=== PATIENT | female | born 1950 | race Hispanic/Latino ===

== ENCOUNTER 2017-06-01 06:16 | Day surgery (SDC) | payer MEDICARE, BC ==
[2016-06-11 12:36] VITALS: BMI 47.2
[2017-06-01 06:54] LABS: INR 0.99 (0.93-1.08); PARTIAL THROMBOPLASTIN TIME 27.5 Seconds (23.7-30.8)
[2017-06-01] MEDS ORDERED: Bupivacaine 0.5% Inj(30mL) ONE (07:17)
[2017-06-01] MEDS ORDERED: Lidocaine 1% Inj (20ml) ONE (07:17)
[2017-06-01] MEDS ORDERED: HYDROmorphone 0.5 mg/0.5 ml ISec IVP PRN (07:36)
[2017-06-01] MEDS ORDERED: Midazolam 2 MG/2 ML VIAL ONE (07:49)
[2017-06-01] MEDS ORDERED: Propofol 10 mg/ml Inj (20 ML) ONE (07:49)
--- NOTE | 2017-06-01 08:53 | PCM.SURG1 ---
Surgeon's Initial Post Op Note - Surgeon's Notes Surgeon: Dr. Smalls Senior Marketing Manager: Dr. Diallo PGY3 Type of Anesthesia: IV Sedation, Local Pre-Operative Diagnosis: right shoulder mass Operative Findings: see operative report Post-Operative Diagnosis: same Operation Performed: excision of 4.2cm by 2.5cm right shoulder mass w/ bilateral flap advancement closure Specimen/Specimens Removed: shoulder mass Estimated Blood Loss: EBL {In ML}: 10 Blood Products Given: N/A Drains Used: No Drains Post-Op Condition: Good Date of Surgery/Procedure: 06/01/17 Time of Surgery/Procedure: 08:52
[2017-06-01 09:40] VITALS: PULSE 69; RESP 18; TEMP 98; O2SAT 96
[2017-06-01 10:00] VITALS: BP 135/63
--- NOTE | 2017-06-01 21:11 | OP ---
PROCEDURE DATE: 05/31/2017 PREOPERATIVE DIAGNOSIS: Mass associated with sebaceous cyst remnant. POSTOPERATIVE DIAGNOSIS: Mass associated with sebaceous cyst remnant. PROCEDURES PERFORMED: 1. Excision of the right upper arm mass. 2. Advancement flap closure of the wound. SURGEON: Dr. Brooks Smalls. PORTABLE POWER TOOL REPAIRER: Dr. Diallo. TYPE OF ANESTHESIA: MAC and local anesthesia. ANESTHESIA ADMINISTERED BY: Dr. Blackwell. ESTIMATED BLOOD LOSS: Minimal. SPECIMEN: Right upper arm mass. DESCRIPTION OF PROCEDURE: The patient is a 66-year-old female with history of infectious sebaceous cyst in the right upper arm, which was I and D'ed in the office and currently it is healing. There is still remnant of the cyst located on the upper arm, and therefore, the patient was brought in for excision of the remaining lesion. The mass measured about 4.2 x 2.5 cm. The patient was brought to the operating room, placed on the operative table in supine. The patient was connected to the EKG, blood pressure and pulse oximetry monitor. The patient then positioned in the right decubitus position and was prepped and draped in usual sterile fashion. First, a standard time-out procedure took place and everybody in the room agreed as to the patient's identity, diagnoses, and procedure to be performed. Using lidocaine and mixed Marcaine, the area of the incision was infiltrated and the incision was made using #15 blade surrounding the lesion. The incision was about 4.2 cm in length and in elliptical fashion. Once the incision was carried through the skin, careful dissection using electrocautery was done and noted to enclose the entire lesion with this specimen. Once this was done and the specimen is removed, the wound is copiously irrigated and all the bleeding points cauterized. In order to reapproximate that skin, we raised flaps on both sides for about 1.5 to 2 inches. This allowed us to mobilize skin enough to reapproximate it close together. Now, the wound was closed using 3-0 Vicryl into the deep dermal layer. Once the skin was reapproximated, 4-0 Monocryl was used to close the superficial layer and 3 vertical mattress stitches of 3-0 nylon was used to reinforce the wound. A sterile dermal ramírez dressing was applied to the wound. The patient tolerated the procedure well and there were no complications. The patient was awake and was transferred to recovery room for further observation. Brooks Smalls MD
== END 2017-06-01 10:15 | disposition home or self-care (01) ==
LOC: SDS 06:16
PROVIDERS: ATTEND General Practice
DX: L72.3 Sebaceous cyst (principal); I10 Essential (primary) hypertension
CPT/HCPCS: 14020; 36415; 85610; 85730; 88304; J0690; J1170; J2250; J2405; J2704; J3010; J7120

== ENCOUNTER 2018-12-13 09:10 | Outpatient (CLI) | payer MEDICARE, BC | END 2018-12-13 09:11 | disposition home or self-care (01) | LOC: PAT 09:10 ==

== ENCOUNTER 2018-12-13 09:17 | Outpatient (CLI) | payer MEDICARE, BC | END 2018-12-13 09:18 | disposition home or self-care (01) | LOC: RAD 09:17 ==

== ENCOUNTER 2019-01-03 06:09 | Inpatient (IN) | payer MEDICARE, BC ==
[2019-01-03] MEDS ORDERED: Vancomycin 1 g Inj ONE (07:19)
[2019-01-03] MEDS ORDERED: Tranexamic Acid 2 ML ONE (07:19)
[2019-01-03] MEDS ORDERED: Sodium Chloride 0.9% 20 ML IV ONE (07:20)
[2019-01-03] MEDS ORDERED: Bupivacaine Liposomal Inj 20 ml ONE (07:21)
[2019-01-03] MEDS ORDERED: Propofol 10 mg/ml Inj (20 ML) ONE (07:31)
[2019-01-03] MEDS ORDERED: Midazolam 2 MG/2 ML VIAL ONE (07:32)
[2019-01-03] MEDS ORDERED: ePHEDrine 50 mg/ml Inj ONE (07:32)
[2019-01-03] MEDS ORDERED: Succinylcholine 200 mg/10 ml Inj IV ONE (07:33)
[2019-01-03] MEDS ORDERED: Phenylephrine 10 mg/ml Inj ONE (07:33)
[2019-01-03] MEDS ORDERED: Rocuronium 10 mg/ml (5 ml) ONE (07:33)
--- NOTE | 2019-01-03 07:43 | CP.PCM.HP ---
History of Present Illness - History of Present Illness History of Present Illness: 68 F with left knee osteoarthritis, failed conservative management elected for a left total knee replacement. allergies to codeine, pseudoephedrine, pantoprazole and iansoprazole pmhx HTN, hyperlipidemia, obesity, glaucoma, depression, anxiety, vit D deficiency No history of VT, stroke, blood blots, or bleeding disorders Present on Admission - Present on Admission Any Indicators Present on Admission: No History of DVT/PE: No History of Uncontrolled Diabetes: No Past Patient History - Past Social History Smoking Status: Never Smoked - CARDIAC Hx Pacemaker: No - PULMONARY Hx Respiratory Disorders: No - NEUROLOGICAL Hx Paralysis: No - HEENT Hx HEENT Problems: No - RENAL Hx Chronic Kidney Disease: No - ENDOCRINE/METABOLIC Hx Endocrine Disorders: No - HEMATOLOGICAL/ONCOLOGICAL Hx Blood Transfusions: No - INTEGUMENTARY Hx Dermatological Problems: No - MUSCULOSKELETAL/RHEUMATOLOGICAL Hx Musculoskeletal Disorders: No - GASTROINTESTINAL Hx Gastrointestinal Disorders: No - GENITOURINARY/GYNECOLOGICAL Hx Genitourinary Disorders: No - PSYCHIATRIC Hx Emotional Abuse: No Hx Physical Abuse: No Hx Substance Use: No - SURGICAL HISTORY Hx Surgeries: Yes - ANESTHESIA Hx Anesthesia Reactions: Yes (CHILLS AFTER D&C) Hx Malignant Hyperthermia: No Meds Allergies/Adverse Reactions: Allergies Allergy/AdvReac Type Severity Reaction Status Date / Time lansoprazole [From Prevacid] Allergy Severe RASH Verified 12/13/18 10:28 pantoprazole sodium Allergy Severe RASH Verified 12/13/18 10:28 [From Protonix] pseudoephedrine Allergy Severe palpaitatio Verified 12/13/18 10:28 ns codeine AdvReac Intermediate NAUSEA Verified 12/13/18 10:28 Physical Exam - Constitutional Appears: Well - Head Exam Head Exam: ATRAUMATIC, NORMAL INSPECTION, NORMOCEPHALIC - Neck Exam Neck exam: Positive for: Full Rom, Normal Inspection - Respiratory Exam Respiratory Exam: NORMAL BREATHING PATTERN - Cardiovascular Exam Cardiovascular Exam: RRR - Extremities Exam Additional comments: L knee skin intact. Calf and thigh soft and nontender to palpation. - Neurological Exam Neurological exam: Alert, CN II-XII Intact, Normal Gait, Oriented x3 - Psychiatric Exam Psychiatric exam: Normal Affect, Normal Mood - Skin Skin Exam: Dry, Intact, Normal Color, Warm Results - Vital Signs Recent Vital Signs: Last Vital Signs Temp 98.1 F 01/03/19 06:30 Pulse 82 01/03/19 06:30 Resp 18 01/03/19 06:30 BP 132/62 01/03/19 06:30 Pulse Ox 98 01/03/19 06:30 Assessment & Plan (1) Osteoarthritis of left knee Assessment and Plan: T&C NPO patient medially optimized for L ALE. Risks benefits and alternatives discussed, patient states their understanding and would like to proceed. Status: Acute (2) Hypertension Status: Chronic (3) Hyperlipidemia Status: Chronic
[2019-01-03] MEDS ORDERED: KETOROLAC IJ ONE (08:00)
[2019-01-03] MEDS ORDERED: [UNRECOGNIZED DRUG - OTHER] IJ ONE (08:00)
[2019-01-03] MEDS ORDERED: BUPIVACAINE HCL IJ ONE (08:00)
[2019-01-03] MEDS ORDERED: EPINEPHRINE IJ ONE (08:00)
[2019-01-03] MEDS ORDERED: Neostigmine Methylsulfate 3mg/3ml Syringe IV ONE (10:38)
--- NOTE | 2019-01-03 11:09 | PCM.SURG1 ---
Surgeon's Initial Post Op Note - Surgeon's Notes Surgeon: Leanne Astorga MD Sewing Machine Operator Floorperson: Lidia Colón PA-C Type of Anesthesia: General Endo Anesthesia Administered By: Dr. Singh Pre-Operative Diagnosis: left knee osteoarthritis Operative Findings: see full note Post-Operative Diagnosis: same Operation Performed: left total knee replacement Specimen/Specimens Removed: none Estimated Blood Loss: EBL {In ML}: 100 Blood Products Given: N/A Drains Used: Hemovac Post-Op Condition: Fair Date of Surgery/Procedure: 01/03/19 (Patient states side effect of codeine is nauesa. Patient denies any rashes or anaphylaxis. She also admits to pseudoephedrine gives her palpations which was discussed that it is a side effect.) Time of Surgery/Procedure: 11:07
[2019-01-03] MEDS ORDERED: oxyCODONE 5 mg Immediate Release Tab PO PRN (11:15)
[2019-01-03] MEDS ORDERED: oxyCODONE 10 mg Immediate Release Tab PO PRN (11:15)
[2019-01-03] MEDS ORDERED: HYDROmorphone 1 mg/ml ISec IVP PRN (11:16)
[2019-01-03] MEDS ORDERED: HYDROmorphone 0.5 mg/0.5 ml ISec IVP PRN (11:31)
[2019-01-03] MEDS ORDERED: HYDROmorphone 0.5 mg/0.5 ml ISec ONE (11:42)
[2019-01-03] MEDS ORDERED: Lactated Ringer's 1,000 ML IV SCH (11:45)
[2019-01-03] MEDS ORDERED: Bupivacaine 0.5% 50 ML IJ ONE (12:22)
--- NOTE | 2019-01-03 12:45 | RAD ---
Date of service: 01/03/2019 PROCEDURE: Left Knee Radiographs. HISTORY: Pain. COMPARISON: None. TECHNIQUE: 2 views obtained. FINDINGS: BONES: No fracture. Status post left knee arthroplasty. JOINTS: Left knee arthroplasty. JOINT EFFUSION: None. OTHER FINDINGS: Postoperative drain in suprapatellar region IMPRESSION: Status post left total knee replacement.
--- NOTE | 2019-01-03 13:14 | PCM.ANESB7 ---
Adductor Canal Block - Adductor Canal Block Date of Procedure: 01/03/19 Anesthiologist: Rodney Pre-Procedure Diagnosis: s/p left TKA Procedure Performed: Adductor Canal Block Left - Procedure Adductor Canal Block: Left femoral nerve block, adductor canal approach, done in PACU post- operatively. Under ultrasound guidance, sterile conditions, 20 cc 0.5% bupivacaine injected, 5 cc increments, negative aspiration. VSS, patient tolerated procedure well. Block requested by Dr. Astorga for post-op pain relief.
[2019-01-03 16:46] VITALS: BMI 48.0
[2019-01-03] MEDS ORDERED: Pneumococcal 23-Valent Vaccine IM ONE (16:47)
[2019-01-03] MEDS ORDERED: Influenza Vaccine 60 mcg/0.5 mL SYR (4YR UP) IM ONE (16:47)
[2019-01-03] MEDS: ceFAZolin IV 2 gm in Dextrose 2 GM/50 ML BAG IVPB SCH ×2 (17:08→23:25)
[2019-01-03] MEDS: Timolol 0.25% Ophth SOLN OS SCH (17:48)
[2019-01-03] MEDS: Latanoprost 2.5 ml Opht Soln OS SCH (21:21)
--- NOTE | 2019-01-03 22:11 | OP ---
PROCEDURE DATE: 01/03/2019 PREOPERATIVE DIAGNOSIS: Left knee osteoarthritis. POSTOPERATIVE DIAGNOSIS: Left knee osteoarthritis. PROCEDURE: Left total knee arthroplasty. SURGEON: Kedar Astorga MD COOLER DELIVERER: Dr. Astorga was assisted by Tabatha Matta, physician market research assistant, as well as January Espinosa, the physician market research assistant. Both physician assistants were scrubbed and present throughout the entire case and assisted in patient positioning, retraction, wound closure. TYPE OF ANESTHESIA: General. COMPLICATIONS: None. ESTIMATED BLOOD LOSS: 100 mL. TOURNIQUET TIME: 89 minutes at 300 mmHg. IMPLANTS: Biomet Vanguard total knee system. INDICATIONS FOR PROCEDURE: This is a 68-year-old female with longstanding left knee pain. Clinical examination was consistent with medial and lateral joint tenderness and pain with patellofemoral glide and antalgic gait pattern. Radiographic examination with advanced tricompartmental degenerative disease. After a period of failed nonsurgical management including viscosupplementation injection, steroid injections and active knee modification as well as medications, recommendations were for a left total knee arthroplasty. The risks, benefits, and alternatives of the procedure were discussed with the patient and informed consent was obtained. DESCRIPTION OF PROCEDURE: After surgical consent was signed and verified in the preoperative holding area, the patient was taken to the operating room and placed supine on the operating table. After administration of general anesthesia, the patient received 3 g of Ancef IV. A Caballero catheter was inserted. A tourniquet was placed about the left thigh. Care was taken to make sure bony prominences and nerves were well padded and protected. The left lower extremity was prepped and draped in usual sterile fashion. The tourniquet was inflated and approximately a 12-cm longitudinal midline incision was made. Soft tissue was dissected sharply down to the knee joint and medial parapatellar arthrotomy was performed. Medial and lateral menisci, ACL and PCL as well as anterior fat pad were resected. Once the knee joint was adequately exposed, a step drill was used to drill into the medullary canal of the distal femur. Intramedullary distal femoral cutting block was inserted and a distal femoral resection was performed. Next, a femoral component was sized and a four-in-one cut block was placed and anterior and posterior cuts were performed. Next, the box cut was then performed on the distal femur and attention directed to the tibia. Using the extramedullary tibial cutting guide, our tibial resection was performed. At this point, our flexion and extension gaps were checked. The patient with full flexion and extension and with stable and balanced with varus and valgus stress. At this point, our attention was directed to the tibia. Our tibial plate was sized and being careful to maintain proper rotation, the medullary canal of the proximal tibia was reamed and punched with the cruciate punch. At this point, with the trial tibia, trial femur, and trial bearing in place, the knee was taken through range of motion and was noted to be stable with full extension and flexion. Attention directed to the patella. Thickness of the patella was measured and our patella resection was performed. The patellar button was sized and the holes for our patellar button were then drilled. The trial patella was then inserted and the knee was taken through a range of motion. Some mild lateral tilt was appreciated and this was corrected by performing a lateral retinacular release. At this point, all the trial components were removed and the knee joint was pulse lavaged with antibiotic saline solution. The bony surfaces were dried and the actual tibial, femoral and patellar components were cemented into place. Care was taken to remove all excess cement. Once the cement had hardened, the wound was inspected for any debris and the knee was once again pulse lavaged. The tourniquet was deflated and any obvious bleeding was cauterized. The actual bearing was then inserted and locked into place with a cross pin. A medium Hemovac drain was inserted, and arthrotomy was closed using #1 Vicryl suture. The subcutaneous tissue was closed using 0 Vicryl and 2-0 Vicryl suture, and the skin was closed using 3-0 nylon. A sterile dressing was applied and a knee immobilizer was placed. The patient was awakened from the procedure, taken to the recovery room in stable condition. Kedar Astorga MD
--- NOTE | 2019-01-04 06:38 | CP.PCM.CON ---
<Crys Palmer - Last Filed: 01/04/19 12:38> History of Present Illness - History of Present Illness History of Present Illness: IM Resident Consult note for Dr. Ware's service Reason for consult: management of htn and hld post operatively Patient is a 68 y/o female with PMHx of HTN, hyperlipidemia, obesity, glaucoma, depression, anxiety, vit D deficiency presented yesterday for left total knee replacement. patient states she had the knee arthritis for years, tried conservative management with no success, was still having difficulty ambulating and pain, this she decided to have the surgery. patient is doing well post operatively. Denies pain, no fever or chills. No cp or sob. PMHx: as stated above PSHx: left knee replacement yesterday FMHx: unknown Social: lives next to her daughter, denies alcohol tobacco or illicit drug use. Home meds: as per chart Allergy: NKDA Review of Systems - Review of Systems All systems: reviewed and no additional remarkable complaints except Review of Systems: 10 point ROS reviewed, all negative except as per HPI. Past Patient History - Past Social History Smoking Status: Never Smoked Alcohol: None Home Situation {Lives}: With Family - CARDIAC Hx Cardiac Disorders: Yes Hx Hypercholesterolemia: Yes Hx Hypertension: Yes Hx Pacemaker: No Hx Peripheral Edema: Yes (+1 pitting left foot) - PULMONARY Hx Respiratory Disorders: No - NEUROLOGICAL Hx Neurological Disorder: No - HEENT Hx HEENT Problems: Yes (reading glasses) Hx Cataracts: Yes Hx Glaucoma: Yes - RENAL Hx Chronic Kidney Disease: No - ENDOCRINE/METABOLIC Hx Endocrine Disorders: No - HEMATOLOGICAL/ONCOLOGICAL Hx Blood Disorders: No - INTEGUMENTARY Hx Dermatological Problems: Yes Other/Comment: left knee replacement 01/03/19 immobilizer and nitin wrap and ice to site, generalized itchy skin chronic, multiple scratches and terrazas from scratching to b/l arms - MUSCULOSKELETAL/RHEUMATOLOGICAL Hx Falls: No - GASTROINTESTINAL Hx Gastrointestinal Disorders: Yes (obese) - GENITOURINARY/GYNECOLOGICAL Hx Genitourinary Disorders: No - PSYCHIATRIC Hx Substance Use: No - SURGICAL HISTORY Hx Surgeries: Yes Other/Comment: sebacious cyst, tonsillectomy, d&c, left breast lumpectomy, left knee replacement today 01/03/19 - ANESTHESIA Hx Anesthesia Reactions: Yes (CHILLS AFTER D&C) Hx Malignant Hyperthermia: No Meds Allergies/Adverse Reactions: Allergies Allergy/AdvReac Type Severity Reaction Status Date / Time lansoprazole [From Prevacid] Allergy Severe RASH Verified 12/13/18 10:28 pantoprazole sodium Allergy Severe RASH Verified 12/13/18 10:28 [From Protonix] pseudoephedrine Allergy Severe palpaitatio Verified 12/13/18 10:28 ns codeine AdvReac Intermediate NAUSEA Verified 12/13/18 10:28 - Medications Medications: Current Medications Acetaminophen (Tylenol 325mg Tab) 650 mg PO Q6 [facility] Last Admin: 01/04/19 05:33 Dose: 650 mg Alprazolam (Xanax) 0.25 mg PO ONCE PRN; Protocol PRN Reason: Anxiety Stop: 01/10/19 11:23 Amlodipine Besylate (Norvasc) 10 mg PO DAILY [facility] Apixaban (Eliquis) 2.5 mg PO BID [facility]; Protocol Atorvastatin Calcium (Lipitor) 20 mg PO DIN [facility] Last Admin: 01/03/19 17:07 Dose: 20 mg Docusate Sodium (Colace) 100 mg PO BID [facility] Last Admin: 01/03/19 17:49 Dose: 100 mg Hydromorphone HCl (Dilaudid) 1 mg IVP Q4H PRN PRN Reason: Pain, severe (8-10) Hydromorphone HCl (Dilaudid) 0.5 mg IVP Q15M PRN PRN Reason: Other Last Admin: 01/03/19 11:42 Dose: 0.5 mg Latanoprost (Xalatan Opht) 0 ml OS HS [facility] Last Admin: 01/03/19 21:21 Dose: 2.5 ml Losartan Potassium (Cozaar) 50 mg PO DAILY [facility] Multivitamins/Minerals (Therapeutic-M Tab) 1 tab PO DAILY [facility] Oxycodone HCl (Oxycodone Immediate Release Tab) 5 mg PO Q4H PRN PRN Reason: Pain, Mild (1-3) Oxycodone HCl (Oxycodone Immediate Release Tab) 10 mg PO Q4H PRN PRN Reason: Pain, moderate (4-7) Pregabalin (Lyrica) 50 mg PO BID [facility] Last Admin: 01/03/19 17:08 Dose: 50 mg Sennosides (Senokot Tab) 17.2 mg PO HS [facility] Last Admin: 01/03/19 21:20 Dose: 17.2 mg Sertraline HCl (Zoloft) 50 mg PO DAILY [facility] Timolol Maleate (Timoptic 0.25% Ophth Soln) 0 drop OS BID [facility] Last Admin: 01/03/19 17:48 Dose: 1 applic Physical Exam - Constitutional Appears: No Acute Distress - Head Exam Head Exam: ATRAUMATIC, NORMAL INSPECTION, NORMOCEPHALIC - Eye Exam Eye Exam: EOMI, Normal appearance, PERRL. absent: Scleral icterus Pupil Exam: NORMAL ACCOMODATION, PERRL - ENT Exam ENT Exam: Mucous Membranes Moist - Neck Exam Neck exam: Positive for: Normal Inspection - Respiratory Exam Respiratory Exam: Clear to Auscultation Bilateral, NORMAL BREATHING PATTERN. absent: Prolonged Expiratory Phase, Rales, Rhonchi, Wheezes, Respiratory Distress, Stridor - Cardiovascular Exam Cardiovascular Exam: REGULAR RHYTHM, RRR, +S1, +S2. absent: Gallop, JVD, Rubs, Systolic Murmur - GI/Abdominal Exam GI & Abdominal Exam: Normal Bowel Sounds, Soft. absent: Diminished Bowel Sounds, Distended, Firm, Guarding, Hernia, Rebound, Rigid - Extremities Exam Additional comments: Immobilized left knee with clean dressing and melanie draining with sanguineous fluid. + 2 dorsalis pedis pulses oscar, foot is warm to touch. Results - Vital Signs Recent Vital Signs: Last Vital Signs Temp 98.2 F 01/03/19 22:10 Pulse 88 01/03/19 22:10 Resp 18 01/03/19 22:10 BP 135/74 01/03/19 22:10 Pulse Ox 91 L 01/03/19 22:10 - Labs Result Diagrams: 01/04/19 06:35 01/04/19 06:35 Labs: Laboratory Results - last 24 hr 01/03/19 06:41 Blood Type O POSITIVE Antibody Screen Negative BBK History Checked Patient has bt Assessment & Plan - Assessment and Plan (Free Text) Assessment: Severe left knee OA s/p total knee replacement Hypertension dyslipidemia Depression Low vitamin D level Glaucoma Morbidly obese with BMI of 48 Plan: Post operative management as per ortho. Will continue with Norvasc and losartan for htn. Lipitor for hld. Patient is also on eliquis for dvt prophylaxis. On calcium and vitamin. Dilaudid prn for severe pain and percocet prn for moderate pain. Continue with colace and senna to prevent constipation. Continue with zoloft for depression. Patient also has timolol drops for glaucoma. Patient seen, examined and case discussed with Dr. Ware. - Date & Time Date: 01/04/19 Time: 10:00 <Yash Ware S - Last Filed: 01/04/19 15:17> Meds - Medications Medications: Current Medications Acetaminophen (Tylenol 325mg Tab) 650 mg PO Q6 [facility] Last Admin: 01/04/19 05:33 Dose: 650 mg Alprazolam (Xanax) 0.25 mg PO ONCE PRN; Protocol PRN Reason: Anxiety Stop: 01/10/19 11:23 Amlodipine Besylate (Norvasc) 10 mg PO DAILY [facility] Last Admin: 01/04/19 09:58 Dose: 10 mg Apixaban (Eliquis) 2.5 mg PO BID [facility]; Protocol Last Admin: 01/04/19 11:39 Dose: Not Given Atorvastatin Calcium (Lipitor) 20 mg PO DIN [facility] Last Admin: 01/03/19 17:07 Dose: 20 mg Calcium Carbonate (Caltrate) 600 mg PO DAILY [facility] Last Admin: 01/04/19 11:51 Dose: 600 mg Cholecalciferol (Vitamin D) 4,000 intlu PO DAILY [facility] Last Admin: 01/04/19 11:51 Dose: 4,000 intlu Docusate Sodium (Colace) 100 mg PO BID [facility] Last Admin: 01/04/19 09:58 Dose: 100 mg Hydromorphone HCl (Dilaudid) 1 mg IVP Q4H PRN PRN Reason: Pain, severe (8-10) Last Admin: 01/04/19 11:50 Dose: 1 mg Hydromorphone HCl (Dilaudid) 0.5 mg IVP Q15M PRN PRN Reason: Other Last Admin: 01/03/19 11:42 Dose: 0.5 mg Latanoprost (Xalatan Opht) 0 ml OS HS [facility] Last Admin: 01/03/19 21:21 Dose: 2.5 ml Losartan Potassium (Cozaar) 50 mg PO DAILY [facility] Last Admin: 01/04/19 09:56 Dose: 50 mg Multivitamins/Minerals (Therapeutic-M Tab) 1 tab PO DAILY [facility] Last Admin: 01/04/19 09:59 Dose: 1 tab Oxycodone HCl (Oxycodone Immediate Release Tab) 5 mg PO Q4H PRN PRN Reason: Pain, Mild (1-3) Oxycodone HCl (Oxycodone Immediate Release Tab) 10 mg PO Q4H PRN PRN Reason: Pain, moderate (4-7) Pregabalin (Lyrica) 50 mg PO BID [facility] Last Admin: 01/04/19 09:58 Dose: Not Given Sennosides (Senokot Tab) 17.2 mg PO HS [facility] Last Admin: 01/03/19 21:20 Dose: 17.2 mg Sertraline HCl (Zoloft) 50 mg PO DAILY [facility] Last Admin: 01/04/19 09:59 Dose: 50 mg Timolol Maleate (Timoptic 0.25% Ophth Soln) 0 drop OS BID [facility] Last Admin: 01/04/19 10:04 Dose: 1 applic Results - Vital Signs Recent Vital Signs: Last Vital Signs Temp 98.4 F 01/04/19 06:00 Pulse 76 01/04/19 09:45 Resp 18 01/04/19 06:00 BP 142/65 01/04/19 09:58 Pulse Ox 95 01/04/19 09:45 - Labs Result Diagrams: 01/04/19 06:35 01/04/19 06:35 Labs: Laboratory Results - last 24 hr 01/04/19 01/04/19 06:35 06:35 WBC 9.8 D RBC 4.37 Hgb 11.1 L Hct 36.2 MCV 82.8 MCH 25.4 MCHC 30.7 L RDW 14.2 Plt Count 227 MPV 9.5 Neut % (Auto) 75.2 H Lymph % (Auto) 13.4 L Murray % (Auto) 10.4 H Eos % (Auto) 0.8 L Baso % (Auto) 0.2 Lymph # (Auto) 1.3 Murray # (Auto) 1.0 H Eos # (Auto) 0.1 Baso # (Auto) 0.02 Absolute Neuts (auto) 7.33 H Sodium 140 Potassium 4.2 Chloride 104 Carbon Dioxide 29 Anion Gap 11 BUN 21 Creatinine 1.0 Est GFR ( Amer) > 60 Est GFR (Non-Af Amer) 55 Random Glucose 121 H Calcium 8.8 Assessment & Plan - Assessment and Plan (Free Text) Plan: Pt seen and examined by me. I have reviewed the note of the medical program specialist and I agree with it. I have discussed the assessment and plan with the resident. I have reviewed the medications and the last labs.
[2019-01-04 07:10] LABS: BASO # 0.02 K/mm3 (0.0-2.0); BASO % 0.2 % (0.0-3.0); EOS # 0.1 (0.0-0.7); EOS % 0.8 % (1.5-5.0); HEMOGLOBIN 11.1 g/dL (12.0-16.0); LYMPH # 1.3 (1.2-3.4); LYMPH % 13.4 % (22.0-35.0); MEAN CELL VOLUME 82.8 fl (80.0-105.0); MEAN CORPUSCULAR HEMOGLOBIN 25.4 pg (25.0-35.0); MEAN CORPUSCULAR HGB CONC 30.7 g/dl (31.0-37.0); MEAN PLATELET VOLUME 9.5 fl (7.0-11.0); MONO % 10.4 % (1.0-6.0); RBC 4.37 10^6/uL (3.5-6.1); RED CELL DISTRIBUTION WIDTH 14.2 % (11.5-14.5); WHITE BLOOD COUNT 9.8 10^3/uL (4.5-11.0)
[2019-01-04 07:21] LABS: BLOOD UREA NITROGEN 21 mg/dL (7-21); CALCIUM 8.8 mg/dL (8.4-10.5); GFR NON-AFRICAN AMERICAN 55
--- NOTE | 2019-01-04 09:32 | CP.PCM.APN ---
Subjective - Date & Time of Evaluation Date of Evaluation: 01/04/19 Time of Evaluation: 08:00 - Subjective Subjective: Pt seen and examined at bedside. L knee immobilizer on, hemovac noted with sanguineous drainage. Denies L knee pain. Objective - Vital Signs/Intake and Output Vital Signs (last 24 hours): Temp Pulse Resp BP Pulse Ox 98.4 F 90 18 127/65 90 L 01/04/19 06:00 01/04/19 06:00 01/04/19 06:00 01/04/19 06:00 01/04/19 06:00 Intake and Output: 01/04/19 01/04/19 06:59 18:59 Intake Total 660 Output Total 1900 Balance -1240 - Medications Medications: Current Medications Acetaminophen (Tylenol 325mg Tab) 650 mg PO Q6 [facility] Last Admin: 01/04/19 05:33 Dose: 650 mg Alprazolam (Xanax) 0.25 mg PO ONCE PRN; Protocol PRN Reason: Anxiety Stop: 01/10/19 11:23 Amlodipine Besylate (Norvasc) 10 mg PO DAILY [facility] Apixaban (Eliquis) 2.5 mg PO BID [facility]; Protocol Atorvastatin Calcium (Lipitor) 20 mg PO DIN [facility] Last Admin: 01/03/19 17:07 Dose: 20 mg Docusate Sodium (Colace) 100 mg PO BID [facility] Last Admin: 01/03/19 17:49 Dose: 100 mg Hydromorphone HCl (Dilaudid) 1 mg IVP Q4H PRN PRN Reason: Pain, severe (8-10) Hydromorphone HCl (Dilaudid) 0.5 mg IVP Q15M PRN PRN Reason: Other Last Admin: 01/03/19 11:42 Dose: 0.5 mg Latanoprost (Xalatan Opht) 0 ml OS HS [facility] Last Admin: 01/03/19 21:21 Dose: 2.5 ml Losartan Potassium (Cozaar) 50 mg PO DAILY [facility] Multivitamins/Minerals (Therapeutic-M Tab) 1 tab PO DAILY [facility] Oxycodone HCl (Oxycodone Immediate Release Tab) 5 mg PO Q4H PRN PRN Reason: Pain, Mild (1-3) Oxycodone HCl (Oxycodone Immediate Release Tab) 10 mg PO Q4H PRN PRN Reason: Pain, moderate (4-7) Pregabalin (Lyrica) 50 mg PO BID [facility] Last Admin: 01/03/19 17:08 Dose: 50 mg Sennosides (Senokot Tab) 17.2 mg PO HS [facility] Last Admin: 01/03/19 21:20 Dose: 17.2 mg Sertraline HCl (Zoloft) 50 mg PO DAILY [facility] Timolol Maleate (Timoptic 0.25% Ophth Soln) 0 drop OS BID [facility] Last Admin: 01/03/19 17:48 Dose: 1 applic - Labs Labs: 01/04/19 06:35 01/04/19 06:35 - Constitutional Appears: No Acute Distress - Respiratory Exam Respiratory Exam: NORMAL BREATHING PATTERN - Cardiovascular Exam Cardiovascular Exam: REGULAR RHYTHM, +S1, +S2 - GI/Abdominal Exam GI & Abdominal Exam: Soft, Normal Bowel Sounds - Rectal Exam Rectal Exam: Deferred - Extremities Exam Additional comments: L knee pain with immobilizer and hemovac - Neurological Exam Neurological Exam: Alert, Awake, Oriented x3 Assessment and Plan - Assessment and Plan (Free Text) Assessment: Pt is a 68 y.o. female who has hx of L knee OA, HTN, HLD, obesity, depression and anxiety who presented for elective L total knee replacement. She is s/p L TKR pod #1. Impressions Knee X-Ray 01/03/19 11:09 IMPRESSION: Status post left total knee replacement. Plan: Pain management DVT prophylaxis Continue w/ IS Physical therapy Meds per MAR Will continue to follow
--- NOTE | 2019-01-04 09:46 | CP.PCM.PN ---
Subjective - Date & Time of Evaluation Date of Evaluation: 01/04/19 Time of Evaluation: 09:42 - Subjective Subjective: Patient seen and examined. Patient sitting up in bed. Denies any significant pain, CP, SOB. No overnight events. VSS WBC 9.8 Hgb 11.1 L knee: dressings clean dry and intact. Hemovac in place on suction. +AROM foot and ankle. Sensation intact to light touch. Calf and thigh are are, NTTP. Grossly NVI distally POD#1 s/p L TKA Cont DVT prophylaxis Cont PT Cont incentive spirometer Dressing changes tomorrow discharge planning to [facility] Discussed above [facility] Dr. Astorga, agrees with above. Objective - Vital Signs/Intake and Output Vital Signs (last 24 hours): Temp Pulse Resp BP Pulse Ox 98.4 F 90 18 127/65 90 L 01/04/19 06:00 01/04/19 06:00 01/04/19 06:00 01/04/19 06:00 01/04/19 06:00 Intake and Output: 01/04/19 01/04/19 06:59 18:59 Intake Total 660 Output Total 1900 Balance -1240 - Medications Medications: Current Medications Acetaminophen (Tylenol 325mg Tab) 650 mg PO Q6 [facility] Last Admin: 01/04/19 05:33 Dose: 650 mg Alprazolam (Xanax) 0.25 mg PO ONCE PRN; Protocol PRN Reason: Anxiety Stop: 01/10/19 11:23 Amlodipine Besylate (Norvasc) 10 mg PO DAILY [facility] Apixaban (Eliquis) 2.5 mg PO BID [facility]; Protocol Atorvastatin Calcium (Lipitor) 20 mg PO DIN [facility] Last Admin: 01/03/19 17:07 Dose: 20 mg Cholecalciferol (Vitamin D) 4,000 intlu PO DAILY [facility] Docusate Sodium (Colace) 100 mg PO BID [facility] Last Admin: 01/03/19 17:49 Dose: 100 mg Hydromorphone HCl (Dilaudid) 1 mg IVP Q4H PRN PRN Reason: Pain, severe (8-10) Hydromorphone HCl (Dilaudid) 0.5 mg IVP Q15M PRN PRN Reason: Other Last Admin: 01/03/19 11:42 Dose: 0.5 mg Latanoprost (Xalatan Opht) 0 ml OS HS [facility] Last Admin: 01/03/19 21:21 Dose: 2.5 ml Losartan Potassium (Cozaar) 50 mg PO DAILY [facility] Multivitamins/Minerals (Therapeutic-M Tab) 1 tab PO DAILY [facility] Oxycodone HCl (Oxycodone Immediate Release Tab) 5 mg PO Q4H PRN PRN Reason: Pain, Mild (1-3) Oxycodone HCl (Oxycodone Immediate Release Tab) 10 mg PO Q4H PRN PRN Reason: Pain, moderate (4-7) Pregabalin (Lyrica) 50 mg PO BID [facility] Last Admin: 01/03/19 17:08 Dose: 50 mg Sennosides (Senokot Tab) 17.2 mg PO HS [facility] Last Admin: 01/03/19 21:20 Dose: 17.2 mg Sertraline HCl (Zoloft) 50 mg PO DAILY [facility] Timolol Maleate (Timoptic 0.25% Oph Soln) 0 drop OS BID [facility] Last Admin: 01/03/19 17:48 Dose: 1 applic - Labs Labs: 01/04/19 06:35 01/04/19 06:35 Assessment and Plan (1) Osteoarthritis of left knee Status: Acute (2) Hypertension Status: Chronic (3) Hyperlipidemia Status: Chronic
[2019-01-04] MEDS: Multivitamin With Minerals Tab PO SCH (09:59)
[2019-01-04] MEDS: Timolol 0.25% Ophth SOLN OS SCH ×2 (10:04→18:10)
[2019-01-04] MEDS: Cholecalciferol 1,000 INTLU TAB PO SCH (11:51)
--- NOTE | 2019-01-04 20:11 | HP ---
DATE OF EXAM: 01/04/2019 HISTORY OF PRESENT ILLNESS: The patient was seen and examined. I do agree with the note of the bilingual medical assistant. I was involved in the plan of care. This is a consult that has been requested by Dr. Archer for post op care after a left total knee replacement secondary to osteoarthritis. The patient has hypertension, dyslipidemia, depression and glaucoma. She has morbid obesity with a BMI of 48. She did fairly with her surgery. She does not like to take narcotics. She says Tylenol is currently helping her pain. She is going to be seen for her hypertension and dyslipidemia. She is on Norvasc for her hypertension as well as Losartan. She is going to need DVT prophylaxis. She is on Eliquis. She is on Dilaudid for severe pain as well as Percocet for moderate pain. She is on Colace and senna for her constipation. She is going to continue with Zoloft for her depression. She is on atenolol for her glaucoma. She is eating well. She will most likely . I did review her labs. Currently, her hemoglobin is 11.1. She was seen by social science manager. She is deciding about the rehab that she is going to go to. Yash Ware MD
[2019-01-04] MEDS: Latanoprost 2.5 ml Opht Soln OS SCH (21:25)
[2019-01-05 06:58] LABS: BASO # 0.02 K/mm3 (0.0-2.0); BASO % 0.2 % (0.0-3.0); EOS # 0.1 (0.0-0.7); EOS % 1.1 % (1.5-5.0); HEMOGLOBIN 11.4 g/dL (12.0-16.0); LYMPH # 1.3 (1.2-3.4); LYMPH % 11.6 % (22.0-35.0); MEAN CELL VOLUME 81.9 fl (80.0-105.0); MEAN CORPUSCULAR HEMOGLOBIN 25.5 pg (25.0-35.0); MEAN CORPUSCULAR HGB CONC 31.1 g/dl (31.0-37.0); MEAN PLATELET VOLUME 9.3 fl (7.0-11.0); MONO % 9.1 % (1.0-6.0); RBC 4.47 10^6/uL (3.5-6.1); RED CELL DISTRIBUTION WIDTH 13.9 % (11.5-14.5); WHITE BLOOD COUNT 10.8 10^3/uL (4.5-11.0)
[2019-01-05 07:09] LABS: BLOOD UREA NITROGEN 14 mg/dL (7-21); CALCIUM 9.3 mg/dL (8.4-10.5); GFR NON-AFRICAN AMERICAN > 60
--- NOTE | 2019-01-05 07:47 | CP.PCM.PN ---
<Crys Palmer - Last Filed: 01/05/19 11:14> Subjective - Date & Time of Evaluation Date of Evaluation: 01/05/19 Time of Evaluation: 06:40 - Subjective Subjective: IM Resident progress note for Dr. Ware's service As per nurse, patient complained of pain all night, however refused Dilaudid and percocet, patient only requested for Tylenol. Patient states the opioid made her feel weird. Afebrile. Denies nausea, vomiting or diarrhea. No bowel movement yet. No headache. Objective - Vital Signs/Intake and Output Vital Signs (last 24 hours): Temp Pulse Resp BP Pulse Ox 98.2 F 75 20 163/72 H 93 L 01/04/19 14:00 01/04/19 14:00 01/04/19 14:00 01/04/19 14:00 01/04/19 14:00 Intake and Output: 01/05/19 01/05/19 06:59 18:59 Intake Total 780 Output Total 1300 Balance -520 - Medications Medications: Current Medications Acetaminophen (Tylenol 325mg Tab) 650 mg PO Q6 PRN PRN Reason: Pain, Mild (1-3) Alprazolam (Xanax) 0.25 mg PO ONCE PRN; Protocol PRN Reason: Anxiety Stop: 01/10/19 11:23 Amlodipine Besylate (Norvasc) 10 mg PO DAILY [facility] Last Admin: 01/04/19 09:58 Dose: 10 mg Apixaban (Eliquis) 2.5 mg PO BID [facility]; Protocol Last Admin: 01/04/19 17:57 Dose: 2.5 mg Atorvastatin Calcium (Lipitor) 20 mg PO DIN [facility] Last Admin: 01/04/19 17:57 Dose: 20 mg Calcium Carbonate (Caltrate) 600 mg PO DAILY [facility] Last Admin: 01/04/19 11:51 Dose: 600 mg Cholecalciferol (Vitamin D) 4,000 intlu PO DAILY [facility] Last Admin: 01/04/19 11:51 Dose: 4,000 intlu Docusate Sodium (Colace) 100 mg PO BID [facility] Last Admin: 01/04/19 17:57 Dose: 100 mg Hydromorphone HCl (Dilaudid) 1 mg IVP Q4H PRN PRN Reason: Pain, severe (8-10) Last Admin: 01/04/19 11:50 Dose: 1 mg Hydromorphone HCl (Dilaudid) 0.5 mg IVP Q15M PRN PRN Reason: Other Last Admin: 01/03/19 11:42 Dose: 0.5 mg Latanoprost (Xalatan Opht) 0 ml OS HS [facility] Last Admin: 01/04/19 21:25 Dose: 2.5 ml Losartan Potassium (Cozaar) 50 mg PO DAILY [facility] Last Admin: 01/04/19 09:56 Dose: 50 mg Multivitamins/Minerals (Therapeutic-M Tab) 1 tab PO DAILY [facility] Last Admin: 01/04/19 09:59 Dose: 1 tab Oxycodone HCl (Oxycodone Immediate Release Tab) 5 mg PO Q4H PRN PRN Reason: Pain, Mild (1-3) Oxycodone HCl (Oxycodone Immediate Release Tab) 10 mg PO Q4H PRN PRN Reason: Pain, moderate (4-7) Pregabalin (Lyrica) 50 mg PO BID [facility] Last Admin: 01/04/19 17:56 Dose: Not Given Sennosides (Senokot Tab) 17.2 mg PO HS [facility] Last Admin: 01/04/19 21:24 Dose: 17.2 mg Sertraline HCl (Zoloft) 50 mg PO DAILY [facility] Last Admin: 01/04/19 09:59 Dose: 50 mg Timolol Maleate (Timoptic 0.25% Ophth Soln) 0 drop OS BID [facility] Last Admin: 01/04/19 18:10 Dose: 1 applic - Labs Labs: 01/05/19 06:30 01/05/19 06:30 - Constitutional Appears: No Acute Distress - Head Exam Head Exam: ATRAUMATIC, NORMAL INSPECTION, NORMOCEPHALIC - Eye Exam Eye Exam: EOMI, Normal appearance, PERRL. absent: Scleral icterus Pupil Exam: NORMAL ACCOMODATION - ENT Exam ENT Exam: Mucous Membranes Moist - Neck Exam Neck Exam: Normal Inspection - Respiratory Exam Respiratory Exam: Clear to Ausculation Bilateral, NORMAL BREATHING PATTERN. absent: Rales, Rhonchi, Wheezes, Respiratory Distress, Stridor - Cardiovascular Exam Cardiovascular Exam: REGULAR RHYTHM, RRR, +S1, +S2. absent: Diastolic murmur, Gallop, JVD, Rubs, Murmur - GI/Abdominal Exam GI & Abdominal Exam: Soft, Normal Bowel Sounds. absent: Distended, Firm, Guarding, Rigid, Tenderness, Rebound Additional comments: Obese abdomen. - Extremities Exam Additional comments: Left lower extremity- knee with clean bandage, foot warm to touch, no signs of cyanosis, +2 dorsalis pedis pulses oscar. - Back Exam Back Exam: NORMAL INSPECTION - Neurological Exam Neurological Exam: Alert, Awake, Oriented x3 - Psychiatric Exam Psychiatric exam: Normal Affect, Normal Mood - Skin Skin Exam: Dry, Normal Color, Warm Assessment and Plan - Assessment and Plan (Free Text) Assessment: 1- Severe left knee OA s/p total knee replacement 2- Hypertension 3- dyslipidemia 4- Depression 5- Low vitamin D level 6- Glaucoma 7- Morbidly obese with BMI of 48 Plan: Patient's BP was elevated overnight likely due to pain, will continue with Norvasc and losartan for htn. On Lipitor for hld. Patient is also on eliquis for dvt prophylaxis. On calcium and vitamin. Dilaudid prn for severe pain and percocet prn for moderate pain. Continue with colace and senna to prevent constipation. Continue with zoloft for depression. Patient also has timolol drops for glaucoma. Dietary advice to loose weight. Post op wound care as per orthopedic. Pending Rehab placement. Patient seen, examined and case discussed with Dr. Ware. <Yash Ware S - Last Filed: 01/05/19 17:40> Objective - Vital Signs/Intake and Output Vital Signs (last 24 hours): Temp Pulse Resp BP Pulse Ox 99.1 F 88 20 143/81 95 01/05/19 14:00 01/05/19 14:00 01/05/19 14:00 01/05/19 14:00 01/05/19 14:00 Intake and Output: 01/05/19 01/05/19 06:59 18:59 Intake Total 780 840 Output Total 1300 1600 Balance -520 -760 - Medications Medications: Current Medications Acetaminophen (Tylenol 325mg Tab) 650 mg PO Q6 PRN PRN Reason: Pain, Mild (1-3) Last Admin: 01/05/19 11:12 Dose: 650 mg Alprazolam (Xanax) 0.25 mg PO ONCE PRN; Protocol PRN Reason: Anxiety Stop: 01/10/19 11:23 Amlodipine Besylate (Norvasc) 10 mg PO DAILY [facility] Last Admin: 01/05/19 11:15 Dose: 10 mg Apixaban (Eliquis) 2.5 mg PO BID [facility]; Protocol Last Admin: 01/05/19 17:17 Dose: 2.5 mg Atorvastatin Calcium (Lipitor) 20 mg PO DIN [facility] Last Admin: 01/05/19 17:17 Dose: 20 mg Benzocaine/Menthol (Cepacol Sore Throat) 1 karen MT Q2H PRN PRN Reason: Sore Throat Calcium Carbonate (Caltrate) 600 mg PO DAILY [facility] Last Admin: 01/05/19 11:14 Dose: 600 mg Cholecalciferol (Vitamin D) 4,000 intlu PO DAILY [facility] Last Admin: 01/05/19 11:13 Dose: 4,000 intlu Docusate Sodium (Colace) 100 mg PO BID [facility] Last Admin: 01/05/19 17:17 Dose: 100 mg Hydromorphone HCl (Dilaudid) 1 mg IVP Q4H PRN PRN Reason: Pain, severe (8-10) Last Admin: 01/04/19 11:50 Dose: 1 mg Hydromorphone HCl (Dilaudid) 0.5 mg IVP Q15M PRN PRN Reason: Other Last Admin: 01/03/19 11:42 Dose: 0.5 mg Latanoprost (Xalatan Opht) 0 ml OS HS [facility] Last Admin: 01/04/19 21:25 Dose: 2.5 ml Losartan Potassium (Cozaar) 50 mg PO DAILY [facility] Last Admin: 01/05/19 11:14 Dose: 50 mg Multivitamins/Minerals (Therapeutic-M Tab) 1 tab PO DAILY [facility] Last Admin: 01/05/19 11:13 Dose: 1 tab Oxycodone HCl (Oxycodone Immediate Release Tab) 5 mg PO Q4H PRN PRN Reason: Pain, Mild (1-3) Oxycodone HCl (Oxycodone Immediate Release Tab) 10 mg PO Q4H PRN PRN Reason: Pain, moderate (4-7) Pregabalin (Lyrica) 50 mg PO BID [facility] Last Admin: 01/05/19 11:15 Dose: Not Given Sennosides (Senokot Tab) 17.2 mg PO HS [facility] Last Admin: 01/04/19 21:24 Dose: 17.2 mg Sertraline HCl (Zoloft) 50 mg PO DAILY [facility] Last Admin: 01/05/19 11:13 Dose: 50 mg Timolol Maleate (Timoptic 0.25% Ophth Soln) 0 drop OS BID [facility] Last Admin: 01/05/19 17:18 Dose: 1 applic - Labs Labs: 01/05/19 06:30 01/05/19 06:30 Assessment and Plan - Assessment and Plan (Free Text) Plan: Patient was seen and examined by me. I have reviewed the note of the medical chemist and have gone over the plan of care. I agree with the note. I have reviewed the medications and the last labs.
--- NOTE | 2019-01-05 08:58 | CP.PCM.PN ---
Subjective - Date & Time of Evaluation Date of Evaluation: 01/05/19 Time of Evaluation: 08:56 - Subjective Subjective: Pt awake, alert. Denies significant pain. Afebrile,VSS L knee: dressing changed. Hemovac d/c'd. Incision clean and dry no cellulitis thigh and calf soft, NT NVI distally Hg 11.4 WBC 10.8 POD#2 Ortho stable for rehab today cont PT, DVT prophylaxis F/u in office in 2 weeks Objective - Vital Signs/Intake and Output Vital Signs (last 24 hours): Temp Pulse Resp BP Pulse Ox 98.2 F 75 20 163/72 H 93 L 01/04/19 14:00 01/04/19 14:00 01/04/19 14:00 01/04/19 14:00 01/04/19 14:00 Intake and Output: 01/05/19 01/05/19 06:59 18:59 Intake Total 780 Output Total 1300 Balance -520 - Medications Medications: Current Medications Acetaminophen (Tylenol 325mg Tab) 650 mg PO Q6 PRN PRN Reason: Pain, Mild (1-3) Alprazolam (Xanax) 0.25 mg PO ONCE PRN; Protocol PRN Reason: Anxiety Stop: 01/10/19 11:23 Amlodipine Besylate (Norvasc) 10 mg PO DAILY [facility] Last Admin: 01/04/19 09:58 Dose: 10 mg Apixaban (Eliquis) 2.5 mg PO BID [facility]; Protocol Last Admin: 01/04/19 17:57 Dose: 2.5 mg Atorvastatin Calcium (Lipitor) 20 mg PO DIN [facility] Last Admin: 01/04/19 17:57 Dose: 20 mg Calcium Carbonate (Caltrate) 600 mg PO DAILY [facility] Last Admin: 01/04/19 11:51 Dose: 600 mg Cholecalciferol (Vitamin D) 4,000 intlu PO DAILY [facility] Last Admin: 01/04/19 11:51 Dose: 4,000 intlu Docusate Sodium (Colace) 100 mg PO BID [facility] Last Admin: 01/04/19 17:57 Dose: 100 mg Hydromorphone HCl (Dilaudid) 1 mg IVP Q4H PRN PRN Reason: Pain, severe (8-10) Last Admin: 01/04/19 11:50 Dose: 1 mg Hydromorphone HCl (Dilaudid) 0.5 mg IVP Q15M PRN PRN Reason: Other Last Admin: 01/03/19 11:42 Dose: 0.5 mg Latanoprost (Xalatan Opht) 0 ml OS HS [facility] Last Admin: 01/04/19 21:25 Dose: 2.5 ml Losartan Potassium (Cozaar) 50 mg PO DAILY [facility] Last Admin: 01/04/19 09:56 Dose: 50 mg Multivitamins/Minerals (Therapeutic-M Tab) 1 tab PO DAILY [facility] Last Admin: 01/04/19 09:59 Dose: 1 tab Oxycodone HCl (Oxycodone Immediate Release Tab) 5 mg PO Q4H PRN PRN Reason: Pain, Mild (1-3) Oxycodone HCl (Oxycodone Immediate Release Tab) 10 mg PO Q4H PRN PRN Reason: Pain, moderate (4-7) Pregabalin (Lyrica) 50 mg PO BID [facility] Last Admin: 01/04/19 17:56 Dose: Not Given Sennosides (Senokot Tab) 17.2 mg PO HS [facility] Last Admin: 01/04/19 21:24 Dose: 17.2 mg Sertraline HCl (Zoloft) 50 mg PO DAILY [facility] Last Admin: 01/04/19 09:59 Dose: 50 mg Timolol Maleate (Timoptic 0.25% Ophth Soln) 0 drop OS BID [facility] Last Admin: 01/04/19 18:10 Dose: 1 applic - Labs Labs: 01/05/19 06:30 01/05/19 06:30
[2019-01-05] MEDS: Cholecalciferol 1,000 INTLU TAB PO SCH (11:13)
[2019-01-05] MEDS: Multivitamin With Minerals Tab PO SCH (11:13)
[2019-01-05] MEDS: Timolol 0.25% Ophth SOLN OS SCH ×2 (11:15→17:18)
[2019-01-05] MEDS ORDERED: Benzocaine/Menthol (Cepacol) Lozenge MT PRN (13:24)
[2019-01-05 14:50] VITALS: PULSE 88; RESP 20; TEMP 99.1; O2SAT 95
--- NOTE | 2019-01-05 20:39 | PN ---
DATE: 01/05/2019 The patient was seen and examined. I do agree with the note of the medical reception. I was involved in the plan of care. The patient says that her pain is controlled. She is only using Tylenol. I did advise that she may use Percocet if she needs to in order to help with the pain when she gets physical therapy. She is on Norvasc for her hypertension as well as losartan. She is on Lipitor for dyslipidemia. She is on Eliquis for DVT prophylaxis. She is going to continue with Zoloft for her depression. She is on Colace and senna for her constipation. She takes atenolol eye drops for her glaucoma. She is waiting to go to physical therapy. The patient had total left knee replacement secondary to severe osteoarthritis. She is going to be placed on calcium and vitamin D. The patient is awaiting to be evaluated by Dr. Ames for rehab. Yash Ware MD
[2019-01-05] MEDS: Latanoprost 2.5 ml Opht Soln OS SCH (21:40)
--- NOTE | 2019-01-06 06:40 | CP.PCM.PN ---
<Crys Palmer - Last Filed: 01/06/19 11:10> Subjective - Date & Time of Evaluation Date of Evaluation: 01/06/19 Time of Evaluation: 08:00 - Subjective Subjective: IM resident progress note for Dr. Ware's service Patient with no acute events overnight. States the left knee pain has improved. No fever or chills. No nausea, vomiting or diarrhea. Tolerating po. Objective - Vital Signs/Intake and Output Vital Signs (last 24 hours): Temp Pulse Resp BP Pulse Ox 99.1 F 88 20 143/81 95 01/05/19 14:00 01/05/19 14:00 01/05/19 14:00 01/05/19 14:00 01/05/19 14:00 Intake and Output: 01/05/19 01/06/19 18:59 06:59 Intake Total 840 660 Output Total 1600 250 Balance -760 410 - Medications Medications: Current Medications Acetaminophen (Tylenol 325mg Tab) 650 mg PO Q6 PRN PRN Reason: Pain, Mild (1-3) Last Admin: 01/05/19 11:12 Dose: 650 mg Alprazolam (Xanax) 0.25 mg PO ONCE PRN; Protocol PRN Reason: Anxiety Stop: 01/10/19 11:23 Amlodipine Besylate (Norvasc) 10 mg PO DAILY [facility] Last Admin: 01/05/19 11:15 Dose: 10 mg Apixaban (Eliquis) 2.5 mg PO BID [facility]; Protocol Last Admin: 01/05/19 17:17 Dose: 2.5 mg Atorvastatin Calcium (Lipitor) 20 mg PO DIN [facility] Last Admin: 01/05/19 17:17 Dose: 20 mg Benzocaine/Menthol (Cepacol Sore Throat) 1 karen MT Q2H PRN PRN Reason: Sore Throat Calcium Carbonate (Caltrate) 600 mg PO DAILY [facility] Last Admin: 01/05/19 11:14 Dose: 600 mg Cholecalciferol (Vitamin D) 4,000 intlu PO DAILY [facility] Last Admin: 01/05/19 11:13 Dose: 4,000 intlu Docusate Sodium (Colace) 100 mg PO BID [facility] Last Admin: 01/05/19 17:17 Dose: 100 mg Hydromorphone HCl (Dilaudid) 1 mg IVP Q4H PRN PRN Reason: Pain, severe (8-10) Last Admin: 01/04/19 11:50 Dose: 1 mg Hydromorphone HCl (Dilaudid) 0.5 mg IVP Q15M PRN PRN Reason: Other Last Admin: 01/03/19 11:42 Dose: 0.5 mg Latanoprost (Xalatan Opht) 0 ml OS HS [facility] Last Admin: 01/05/19 21:40 Dose: 2.5 ml Losartan Potassium (Cozaar) 50 mg PO DAILY [facility] Last Admin: 01/05/19 11:14 Dose: 50 mg Multivitamins/Minerals (Therapeutic-M Tab) 1 tab PO DAILY [facility] Last Admin: 01/05/19 11:13 Dose: 1 tab Oxycodone HCl (Oxycodone Immediate Release Tab) 5 mg PO Q4H PRN PRN Reason: Pain, Mild (1-3) Oxycodone HCl (Oxycodone Immediate Release Tab) 10 mg PO Q4H PRN PRN Reason: Pain, moderate (4-7) Pregabalin (Lyrica) 50 mg PO BID [facility] Last Admin: 01/05/19 19:23 Dose: Not Given Sennosides (Senokot Tab) 17.2 mg PO HS [facility] Last Admin: 01/05/19 21:38 Dose: 17.2 mg Sertraline HCl (Zoloft) 50 mg PO DAILY [facility] Last Admin: 01/05/19 11:13 Dose: 50 mg Timolol Maleate (Timoptic 0.25% Ophth Soln) 0 drop OS BID [facility] Last Admin: 01/05/19 17:18 Dose: 1 applic - Labs Labs: 01/05/19 06:30 01/05/19 06:30 - Constitutional Appears: No Acute Distress - Head Exam Head Exam: ATRAUMATIC, NORMAL INSPECTION, NORMOCEPHALIC - Eye Exam Eye Exam: EOMI, Normal appearance, PERRL. absent: Scleral icterus Pupil Exam: NORMAL ACCOMODATION - ENT Exam ENT Exam: Mucous Membranes Moist - Neck Exam Neck Exam: Normal Inspection - Respiratory Exam Respiratory Exam: Clear to Ausculation Bilateral, NORMAL BREATHING PATTERN. a bsent: Rales, Rhonchi, Wheezes, Respiratory Distress, Stridor - Cardiovascular Exam Cardiovascular Exam: REGULAR RHYTHM, RRR, +S1, +S2. absent: Bradycardia, Tac hycardia, Clicks, Diastolic murmur, Gallop, Irregular Rhythm, JVD, Rubs, Murmur - GI/Abdominal Exam GI & Abdominal Exam: Soft, Normal Bowel Sounds. absent: Distended, Guarding, Tenderness, Hernia, Hyperactive Bowel Sounds, Mass, Organomegaly, Rebound - Extremities Exam Additional comments: Left knee with clean bandage. - Back Exam Back Exam: NORMAL INSPECTION - Neurological Exam Neurological Exam: Alert, Awake, Oriented x3 - Psychiatric Exam Psychiatric exam: Normal Affect, Normal Mood - Skin Skin Exam: Dry, Normal Color, Warm Assessment and Plan - Assessment and Plan (Free Text) Assessment: 1- Severe left knee OA s/p total knee replacement 2- Hypertension 3- dyslipidemia 4- Depression 5- Low vitamin D level 6- Glaucoma 7- Morbidly obese with BMI of 48 Plan: Patient is awaiting rehab placement. BP improved with pain control. Currently only on Tylenol prn for pain, and lyrica for neuropatic pain. Continue with Norvasc and losartan for htn. On Lipitor for hld. On eliquis for dvt prophylaxis. Colace and senna to prevent constipation. Zoloft for depression, and timolol drops for glaucoma. Also on calcium and vitamin for bone health. Post op wound care as per orthopedic. Patient seen, examined and case discussed with Dr. Ware. <Yash Ware S - Last Filed: 01/06/19 15:52> Objective - Vital Signs/Intake and Output Vital Signs (last 24 hours): Temp Pulse Resp BP Pulse Ox 99.1 F 88 20 124/78 95 01/05/19 14:00 01/05/19 14:00 01/05/19 14:00 01/06/19 12:08 01/05/19 14:00 Intake and Output: 01/06/19 01/06/19 06:59 18:59 Intake Total 660 Output Total 250 Balance 410 - Labs Labs: 01/06/19 06:45 01/06/19 06:45 Assessment and Plan - Assessment and Plan (Free Text) Plan: Pt seen and examined by me. I have reviewed the note of the neuropsychology medical consultant and I agree with it. I have discussed the assessment and plan with the resident. I have reviewed the medications and the last labs.
[2019-01-06 07:13] LABS: BASO # 0.02 K/mm3 (0.0-2.0); BASO % 0.2 % (0.0-3.0); EOS # 0.2 (0.0-0.7); HEMOGLOBIN 11.1 g/dL (12.0-16.0); LYMPH # 1.4 (1.2-3.4); LYMPH % 12.5 % (22.0-35.0); MEAN CELL VOLUME 82.1 fl (80.0-105.0); MEAN CORPUSCULAR HEMOGLOBIN 25.5 pg (25.0-35.0); MEAN CORPUSCULAR HGB CONC 31.1 g/dl (31.0-37.0); MEAN PLATELET VOLUME 9.6 fl (7.0-11.0); MONO # 0.9 (0.1-0.6); MONO % 8.1 % (1.0-6.0); RBC 4.35 10^6/uL (3.5-6.1); RED CELL DISTRIBUTION WIDTH 13.9 % (11.5-14.5)
[2019-01-06 08:32] LABS: BLOOD UREA NITROGEN 17 mg/dL (7-21); GFR NON-AFRICAN AMERICAN > 60
--- NOTE | 2019-01-06 09:42 | CP.PCM.PN ---
Subjective - Date & Time of Evaluation Date of Evaluation: 01/06/19 Time of Evaluation: 09:40 - Subjective Subjective: Pt awake, alert. Adequate pain control. Pt ambulated yesterday with walker. Afebrile, VSS L knee: dressing changed incision clean and dry thigh and calf soft, NT NVI distally Hg 11.1 POD#3 Stable for d/c today to [facility] cont dvt prophylaxis f/u in office in 2 weeks Objective - Vital Signs/Intake and Output Vital Signs (last 24 hours): Temp Pulse Resp BP Pulse Ox 99.1 F 88 20 143/81 95 01/05/19 14:00 01/05/19 14:00 01/05/19 14:00 01/05/19 14:00 01/05/19 14:00 Intake and Output: 01/06/19 01/06/19 06:59 18:59 Intake Total 660 Output Total 250 Balance 410 - Medications Medications: Current Medications Acetaminophen (Tylenol 325mg Tab) 650 mg PO Q6 PRN PRN Reason: Pain, Mild (1-3) Last Admin: 01/05/19 11:12 Dose: 650 mg Alprazolam (Xanax) 0.25 mg PO ONCE PRN; Protocol PRN Reason: Anxiety Stop: 01/10/19 11:23 Amlodipine Besylate (Norvasc) 10 mg PO DAILY [facility] Last Admin: 01/05/19 11:15 Dose: 10 mg Apixaban (Eliquis) 2.5 mg PO BID [facility]; Protocol Last Admin: 01/05/19 17:17 Dose: 2.5 mg Atorvastatin Calcium (Lipitor) 20 mg PO DIN [facility] Last Admin: 01/05/19 17:17 Dose: 20 mg Benzocaine/Menthol (Cepacol Sore Throat) 1 karen MT Q2H PRN PRN Reason: Sore Throat Calcium Carbonate (Caltrate) 600 mg PO DAILY [facility] Last Admin: 01/05/19 11:14 Dose: 600 mg Cholecalciferol (Vitamin D) 4,000 intlu PO DAILY [facility] Last Admin: 01/05/19 11:13 Dose: 4,000 intlu Docusate Sodium (Colace) 100 mg PO BID [facility] Last Admin: 01/05/19 17:17 Dose: 100 mg Hydromorphone HCl (Dilaudid) 0.5 mg IVP Q15M PRN PRN Reason: Other Last Admin: 01/03/19 11:42 Dose: 0.5 mg Latanoprost (Xalatan Opht) 0 ml OS HS [facility] Last Admin: 01/05/19 21:40 Dose: 2.5 ml Losartan Potassium (Cozaar) 50 mg PO DAILY [facility] Last Admin: 01/05/19 11:14 Dose: 50 mg Multivitamins/Minerals (Therapeutic-M Tab) 1 tab PO DAILY [facility] Last Admin: 01/05/19 11:13 Dose: 1 tab Oxycodone HCl (Oxycodone Immediate Release Tab) 5 mg PO Q4H PRN PRN Reason: Pain, Mild (1-3) Oxycodone HCl (Oxycodone Immediate Release Tab) 10 mg PO Q4H PRN PRN Reason: Pain, moderate (4-7) Pregabalin (Lyrica) 50 mg PO BID [facility] Last Admin: 01/05/19 19:23 Dose: Not Given Sennosides (Senokot Tab) 17.2 mg PO HS [facility] Last Admin: 01/05/19 21:38 Dose: 17.2 mg Sertraline HCl (Zoloft) 50 mg PO DAILY [facility] Last Admin: 01/05/19 11:13 Dose: 50 mg Timolol Maleate (Timoptic 0.25% Ophth Soln) 0 drop OS BID [facility] Last Admin: 01/05/19 17:18 Dose: 1 applic - Labs Labs: 01/06/19 06:45 01/06/19 06:45
[2019-01-06] MEDS: Cholecalciferol 1,000 INTLU TAB PO SCH (12:07)
[2019-01-06] MEDS: Multivitamin With Minerals Tab PO SCH (12:08)
[2019-01-06 12:09] VITALS: BP 124/78
--- NOTE | 2019-01-06 22:56 | DS ---
HOSPITAL COURSE: The patient was seen and examined. I do agree with the note of the medical lab director. I was involved in the plan of care. The patient's pain is controlled. She is on Zoloft for depression. She is on timolol for her glaucoma. She is on Tylenol for pain. She is getting Lyrica for her neuropathy. She is on Norvasc and losartan for her hypertension. She is on Eliquis for DVT prophylaxis. She is going to be discharged to rehab facility, possibly . Yash Ware MD
--- NOTE | 2019-01-10 14:01 | CP.PCM.DIS ---
Provider - Provider Date of Admission: 01/04/19 14:19 Attending physician: Kedar Astorga MD Primary care physician: Lit Victor MD Consults: 01/03/19 11:09 Case Management Referral Routine Comment: Physician Instructions: Reason For Exam: Reason for Referral: Discharge Planning 01/03/19 11:16 Physician Consult Routine Comment: Consulting Provider: Yash Ware Consulting Physician: Yash Ware Reason for Consult: post op medical management 01/03/19 16:20 Social Work Referral Routine Comment: d/c plan Physician Instructions: Reason For Exam: assess Time Spent in preparation of Discharge (in minutes): 5 Diagnosis - Discharge Diagnosis (1) Osteoarthritis of left knee Status: Acute (2) Hypertension Status: Chronic (3) Hyperlipidemia Status: Chronic Hospital Course - Lab Results Lab Results: Most Recent Lab Values WBC 11.0 10^3/uL (4.5-11.0) 01/06/19 06:45 RBC 4.35 10^6/uL (3.5-6.1) 01/06/19 06:45 Hgb 11.1 g/dL (12.0-16.0) L 01/06/19 06:45 Hct 35.7 % (36.0-48.0) L 01/06/19 06:45 MCV 82.1 fl (80.0-105.0) 01/06/19 06:45 MCH 25.5 pg (25.0-35.0) 01/06/19 06:45 MCHC 31.1 g/dl (31.0-37.0) 01/06/19 06:45 RDW 13.9 % (11.5-14.5) 01/06/19 06:45 Plt Count 237 10^3/uL (120.0-450.0) 01/06/19 06:45 MPV 9.6 fl (7.0-11.0) 01/06/19 06:45 Neut % (Auto) 77.2 % (50.0-68.0) H 01/06/19 06:45 Lymph % (Auto) 12.5 % (22.0-35.0) L 01/06/19 06:45 Park % (Auto) 8.1 % (1.0-6.0) H 01/06/19 06:45 Eos % (Auto) 2.0 % (1.5-5.0) 01/06/19 06:45 Baso % (Auto) 0.2 % (0.0-3.0) 01/06/19 06:45 Lymph # (Auto) 1.4 (1.2-3.4) 01/06/19 06:45 Park # (Auto) 0.9 (0.1-0.6) H 01/06/19 06:45 Eos # (Auto) 0.2 (0.0-0.7) 01/06/19 06:45 Baso # (Auto) 0.02 K/mm3 (0.0-2.0) 01/06/19 06:45 Absolute Neuts (auto) 8.50 (1.4-6.5) H 01/06/19 06:45 Sodium 138 mmol/L (132-148) 01/06/19 06:45 Potassium 3.7 mmol/L (3.6-5.0) 01/06/19 06:45 Chloride 101 mmol/L (98-107) 01/06/19 06:45 Carbon Dioxide 30 mmol/L (21-33) 01/06/19 06:45 Anion Gap 11 (10-20) 01/06/19 06:45 BUN 17 mg/dL (7-21) 01/06/19 06:45 Creatinine 0.9 mg/dl (0.7-1.2) 01/06/19 06:45 Est GFR ( Amer) > 60 01/06/19 06:45 Est GFR (Non-Af Amer) > 60 01/06/19 06:45 Random Glucose 129 mg/dL (70-110) H 01/06/19 06:45 Calcium 9.0 mg/dL (8.4-10.5) 01/06/19 06:45 Blood Type O POSITIVE 01/03/19 06:41 Antibody Screen Negative 01/03/19 06:41 BBK History Checked Patient has bt 01/03/19 06:41 - Hospital Course Hospital Course: 68F with pmhx HTN, hyperlipidemia, left knee osteoarthritis failed conservative management and elected for TKR. Postoperative imaging demonstrated acceptable position of prosthesis. Medical consultation was requested for post operative medical management. HTN controlled throughout admission Patients post operative course was complicated by acute blood loss anemia, hemodynamically stable and well tolerated, no treatment needed. Patient tolerated PT/OT well. Patient received VTE prophylaxis in the form of Eliquis 2.5mg BID and venodynes. Patient also instructed to continue with hip abduction pillow and posterior hip precautions. PT was discharged to [facility], and continued on home medications as well as the Eliquis for two more weeks/ Patient was WBAT LLE, ambulating with walker, and given instructions for daily dressing changes and to f/u Dr. Astorga within 2 weeks Discharge Exam - Head Exam Head Exam: ATRAUMATIC, NORMAL INSPECTION, NORMOCEPHALIC Discharge Plan - Follow Up Plan Condition: GOOD Instructions: Total Knee Replacement (DC), Postop Total Knee Replacement Exercises Lying Down, Postop Total Knee Replacement Exercises Seated or Standing Additional Instructions: Patient being discharged to [facility] for rehab. Referrals: Kedar Astorga MD [Staff Provider] - Lit Victor MD [Primary Care Provider] -
== END 2019-01-06 14:55 | DRG 470 ==
LOC: SDS 06:09 → 5RSO 14:19 → SDS 01-04 14:19
PROVIDERS: ADMIT Orthopaedic Surgery; ATTEND Orthopaedic Surgery
PROC: 3E0T3BZ Introduction of Anesthetic Agent into Peripheral Nerves and Plexi, Percutaneous Approach (ICD-10-PCS; 2019-01-03)
PROC: 0SRD0J9 Replacement of Left Knee Joint with Synthetic Substitute, Cemented, Open Approach (ICD-10-PCS; principal; 2019-01-03 07:45)
DX: M17.12 Unilateral primary osteoarthritis, left knee (principal); Z68.42 Body mass index [BMI] 45.0-49.9, adult; I10 Essential (primary) hypertension; E66.01 Morbid (severe) obesity due to excess calories; G62.9 Polyneuropathy, unspecified; E78.00 Pure hypercholesterolemia, unspecified; K59.00 Constipation, unspecified; E78.5 Hyperlipidemia, unspecified; E55.9 Vitamin D deficiency, unspecified; F41.9 Anxiety disorder, unspecified; H40.9 Unspecified glaucoma; F32.9 Major depressive disorder, single episode, unspecified; Z79.01 Long term (current) use of anticoagulants; Z88.5 Allergy status to narcotic agent